=== PATIENT | male | born 1950 | race Caucasian/White ===

== ENCOUNTER → 2021-10-18 01:19 | Outpatient (CLI) | payer OTHER, SELFPAY ==
--- NOTE | 2021-10-18 09:40 | DI.US_ITS ---
APPROVED REPORT EXAM: Comprehensive 2D, Doppler, and color-flow Echocardiogram Patient Location: Out-Patient Program Rep: Akanksha Gee RDCS (AE) Indications: Heart condition Other Information Study Quality: Adequate Conclusion Normal left ventricular wall thickness and chamber size. Estimated ejection fraction is 60%. Wall m otion is normal Normal right ventricular size and systolic function The left atrium is mildly dilated. The right atrium is normal in size There is no structural or hemodynamically significant valvular disease Estimated right ventricular systolic pressure is 31 mmHg Wall motion Left Ventricle The left ventricle is normal size. The left ventricular systolic function is normal. The left ventric ular ejection fraction is within the normal range. There is normal left ventricular wall thickness. T here is normal LV segmental wall motion. There is no ventricular septal defect visualized. LVEF is 60 %. Right Ventricle The right ventricle is normal size. The right ventricular systolic function is normal. The RVSP is 31 .4 mmHg. Atria Left atrium is mildly dilated. The right atrium size is normal. The interatrial septum is intact with no evidence for an atrial septal defect. Aortic Valve The aortic valve is normal in structure. There is no aortic valvular stenosis. No aortic regurgitatio n is present. Mitral Valve Mild mitral annular calcification. No evidence of mitral valve stenosis. Trace to mild mitral regurgi tation. Tricuspid Valve The tricuspid valve is normal in structure. There is no tricuspid valve stenosis. Trace tricuspid reg urgitation. Pulmonic Valve The pulmonary valve is normal in structure. There is no pulmonic valvular stenosis. Trace pulmonic re gurgitation. Great Vessels The aortic root is normal in size. The ascending aorta is normal in size. Aortic arch is normal in ca liber. IVC is normal in size and collapses >50% with inspiration. Pericardium There is no pericardial effusion. 2D Dimensions IVSD d PLAX 1.01 cm M: 0.6-1.2 LV Vol A2C d MOD 119.7 mL LVPW d PLAX 1.05 cm M: 0.6 - 1.2 LV Vol A4C d MOD 140.6 mL LVID d PLAX 5.15 cm M: 4.2 - 5.8 LA vol/ BSA A2C s A-L 26.2 mL/m2 LVDs 3.60 cm M: 2.5 - 4.0 LA vol/ BSA A4C s A-L 37.6 mL/m2 Ao Root d 3.08 cm M: 3.1 - 3.7 LA Vol/ BSA Biplane s A-L 31.9 mL/m2 RA Area A4C 20.18 cm2 LA Area A4C s MOD 24.68 cm2 RA Vol/ BSA A4C s A-L 28.6 mL/m2 LA Area A2C s MOD 20.31 cm2 Ao Asc Diam d 3.43 cm M: 2.6 - 3.4 LV EF A4C MOD 60.5 % LV EF Teichholz 56.6 % LV EF A2C MOD 60.4 % LVEF (Ellis's) 60.63 % M: 52 - 72 LV EF Biplane MOD 60.6 % LV Volume 94.67 mL M: 62 - 150 SV 79.54 mL LV Volume Index 42.07 mL/m2 M: 34 - 74 SV Index 35.26 mL/m2 LV Vol Biplane MOD 131.2 mL FS 29.80 % M-Mode TAPSE 2.81 cm (M/F) >1.7 LV Diastology MV E' medial 0.081 (>0.07 m/s) E/A Ratio 0.8 LV E/e MED 7.85 (<14) MV E Vmax 0.64 (0.4-1.3 m/s) MV E' lateral 0.100 (>0.1 m/s) MV A Vmax 0.85 (0.4-1.3 m/s) LV E/e LAT 6.30 (<14) MV E/A Ratio 0.74 MV E/E' medial 7.88 MV E/E' lateral 6.34 Aortic Valve LVOT Area 3.11 cm2 AoV Area Vmax 2.62 cm2 LVOT Vmax 1.50 m/s AoV Area/ BSA (Vmax) 1.16 cm2/m2 LVOT Mean Sidnye. 0.90 m/s SHAQ Mean Sidney. 2.57 cm2 LVOT Peak Grad 9.0 mmHg SHAQ Mean Sidney. Index 1.14 cm2/m2 LVOT Mean Grad 4.0 mmHg LVOT VTI 0.300 m LVOT Diam s 1.95 cm AoV Vmax 1.78 m/s Velocity Ratio 0.84 AoV Mean Sidney. 1.09 m/s AoV Peak Grad 12.7 mmHg LVOT SV 93.18 mL AoV Mean Grad 5.6 mmHg AoV VTI 0.316 m AoV Area VTI 2.95 cm2 AoV Area/ BSA (VTI) 1.31 cm/m2 Mitral Valve MV DT 326 (160-240 msec) MV PHT 95 msec MV Area PHT 2.32 cm2 MV VTI 0.380 m MV Area VTI 2.45 (4.0-6.0 cm2) Pulmonary Valve PV Vmax 1.28 (0.5-1.5 m/s) RVOT Peak Gr. 1.99 mmHg PV Peak Grad 6.6 mmHg RVOT Mean Gr. 1.15 mmHg PV Mean Grad 3.5 mmHg RVOT VTI 0.164 m PV VTI 0.252 m RVOT Vmax 0.71 m/s Tricuspid Valve TR Peak Grad 28.3 mmHg TR Vmax 2.66 m/s RA Pressure 3.00 mmHg RVSP (TR) 31.4 mmHg
== END ==
PROVIDERS: Visit Provider Chiropractor
DX: I51.89 Other ill-defined heart diseases (principal)
CPT/HCPCS: 93306